=== PATIENT | female | born 1945 | race Hispanic/Latino ===

== ENCOUNTER 2020-06-20 11:08 | Emergency (ER) | payer MEDICARE, OTHER ==
[~2020-06-20] VITALS: Ht 152.4 cm; Wt 65.8 kg
[2020-06-20] MEDS ORDERED: CARBAMAZEPINE200 MG PO (11:34)
[2020-06-20] MEDS ORDERED: AMLODIPINE BESYL5 MG PO (11:35)
[2020-06-20] MEDS ORDERED: OXYBUTYNIN CHLOR5 M1 PO (11:35)
[2020-06-20] MEDS ORDERED: DIAZEPAM2 MG PO (11:36)
[2020-06-20] MEDS ORDERED: ALENDRONATE SOD70 MG PO (11:37)
[2020-06-20] MEDS ORDERED: PHENYTEK300 MG PO (11:37)
--- NOTE | 2020-06-20 15:12 | EKG ---
[facility] [address] [place], [place] [address] Signed Normal sinus rhythm Normal ECG No previous ECGs available Confirmed by GRISELDA AVENDAÑO MD ([id number] on 06/20/2020 3:12:35 PM Electronically Signed By: GRISELDA AVENDAÑO MD 06/20/20 1512 PATIENT NAME: ELIZABETH BAEZCALLIE Electrocardiogram DATE OF : 43 PHYSICIAN: GRISELDA AVENDAÑO MD REPORT #: [id number] REPORT IS CONFIDENTIAL AND NOT TO BE RELEASED WITHOUT AUTHORIZATION
[2020-06-20] MEDS ORDERED: ONDANSETRON ODT4 MG PO (15:46)
== END 2020-06-20 16:10 | disposition home or self-care (01) ==
LOC: ED 11:08
DX: G93.89 Other specified disorders of brain (principal); Z20.822 Contact with and (suspected) exposure to COVID-19; G40.909 Epilepsy, unspecified, not intractable, without status epilepticus; Z79.899 Other long term (current) drug therapy
CPT/HCPCS: 70450; 70496; 70498; 80053; 80156; 80185; 81001; 84484; 85025; 93005; 93010; 99285-25; C9803; J7040; Q9967; U0003